=== PATIENT | female | born 1975 ===

== ENCOUNTER 2018-12-24 08:52 | Emergency (ER) | payer OTHER ==
[2018-12-24 08:55] VITALS: RESP 18; TEMP 97.7; O2SAT 100
--- NOTE | 2018-12-24 09:34 | ED PDOC ---
HPI: Abdomen Time Seen by Provider: 12/24/18 09:24 Chief Complaint (Nursing): Abdominal Pain Chief Complaint (Provider): Right lower abdominal pain History Per: Patient History/Exam Limitations: no limitations Onset/Duration Of Symptoms: Days Outside of [place] travel?: No Current Symptoms Are (Timing): Still Present Location Of Pain/Discomfort: RLQ, Epigastric Quality Of Discomfort: "Pain" Associated Symptoms: Nausea. denies: Fever, Chills, Vomiting, Diarrhea, Loss Of Appetite, Back Pain, Chest Pain, Constipation, Urinary Symptoms Additional History Per: Patient Additional Complaint(s): 43yo female, otherwise well, with history of appendectomy, kidney stones, comes to ER reporting right lower abdominal pain, and now with epigastric abdominal pain as well. She states the pain has been present since last night and is associated with nausea. Otherwise, no fever, chills, vomiting, back pain, hematuria, dysuria. She also denies any chest pain or shortness of breath. Patient did not take any medication for her symptoms. No additional complaints. PMD: None Abnormal Vaginal Bleeding: No Past Medical History Reviewed: Historical Data, Nursing Documentation, Vital Signs Vital Signs: Last Vital Signs Temp 97.7 F 12/24/18 08:55 Pulse 60 12/24/18 08:55 Resp 18 12/24/18 08:55 BP 118/66 12/24/18 08:55 Pulse Ox 100 12/24/18 08:55 - Medical History PMH: Kidney Stones - Surgical History Surgical History: Appendectomy Other surgeries: tummy tuck - Family History Family History: States: No Known Family Hx - Social History Current smoker - smoking cessation education provided: No Alcohol: None Drugs: Denies - Home Medications Home Medications: Ambulatory Orders Medication Instructions Recorded Oxycodone HCl/Acetaminophen 1 tab PO Q6 PRN #12 tab 07/25/15 [Percocet 325 mg-5 mg] Tamsulosin [Flomax] 0.4 mg PO DAILY #10 cap 07/25/15 Famotidine [Pepcid] 20 mg PO BID #28 tab 08/16/15 Naproxen 500 mg PO Q12 #20 tab 08/16/15 Ondansetron [Zofran] 4 mg PO Q8H #9 tab 08/16/15 Tamsulosin [Flomax] 0.4 mg PO DAILY #21 cap 08/16/15 Dicyclomine [Bentyl] 20 mg PO BID PRN #30 tab 09/21/16 Famotidine [Pepcid] 40 mg PO DAILY PRN #14 tab 09/21/16 Ondansetron [Zofran] 4 mg PO Q8H PRN #30 tab 09/21/16 Famotidine [Pepcid] 20 mg PO DAILY PRN #6 tab 12/24/18 Ibuprofen [Motrin] 600 mg PO TID 7 Days tab 12/24/18 - Allergies Allergies/Adverse Reactions: Allergies Allergy/AdvReac Type Severity Reaction Status Date / Time Penicillins Allergy swelling, Verified 12/24/18 09:13 shortness of breath Review of Systems ROS Statement: Except As Marked, All Systems Reviewed And Found Negative Constitutional: Negative for: Fever, Chills Cardiovascular: Negative for: Chest Pain, Light Headedness Respiratory: Negative for: Shortness of Breath Gastrointestinal: Positive for: Nausea, Abdominal Pain. Negative for: Vomiting, Diarrhea Genitourinary Female: Negative for: Dysuria, Frequency, Hematuria, Vaginal Discharge, Vaginal Bleeding Musculoskeletal: Negative for: Back Pain Neurological: Negative for: Headache, Dizziness Physical Exam - Reviewed Nursing Documentation Reviewed: Yes Vital Signs Reviewed: Yes - Physical Exam Appears: Positive for: Non-toxic, No Acute Distress Head Exam: Positive for: ATRAUMATIC, NORMAL INSPECTION, NORMOCEPHALIC Skin: Positive for: Normal Color Eye Exam: Positive for: Normal appearance, EOMI, PERRL ENT: Negative for: Pharyngeal Erythema Neck: Positive for: Normal, Supple Cardiovascular/Chest: Positive for: Regular Rate, Rhythm. Negative for: Murmur, Tachycardia Respiratory: Positive for: Normal Breath Sounds. Negative for: Rales, Rhonchi, Wheezing Gastrointestinal/Abdominal: Positive for: Soft, Tenderness (mild tenderness to righ lower abdomen/right pelvis; epigastric). Negative for: Mass, Guarding, Rebound Back: Positive for: Normal Inspection. Negative for: L CVA Tenderness, R CVA Tenderness Extremity: Positive for: Normal ROM. Negative for: Pedal Edema Neurologic/Psych: Positive for: Alert, Oriented. Negative for: Motor/Sensory Deficits - Laboratory Results Result Diagrams: 12/24/18 09:39 12/24/18 09:39 Lab Results: no acute - ECG O2 Sat by Pulse Oximetry: 100 (RA) Pulse Ox Interpretation: Normal - CT Scan/US us Other Rad Studies (CT/US): Read By Radiologist Other Rad Interpretation: ovarian cyst left - Progress ED Course And Treament: 1201: Stable. AAOx3. Pain free. Tolerated PO. Fu with pcp. Medical Decision Making Medical Decision Making: Impression: Right pelvic pain Plan: -- Labs -- UDip -- US Transvaginal -- IV fluids -- Toradol 15mg IV Scribe Attestation: Documented by Swati Vance acting as a scribe for Darell Weeks MD Provider Attestation: All medical record entries made by the Scribe were at my direction and personally dictated by me. I have reviewed the chart and agree that the record accurately reflects my personal performance of the history, physical exam, medical decision making, and the department course for this patient. I have also personally directed, reviewed, and agree with the discharge instructions and disposition. Disposition - Clinical Impression Clinical Impression: Pelvic cramping, Ovarian cyst - Patient ED Disposition Is Patient to be Admitted: No - Disposition [facility] - [facility] Disposition: Routine/Home Disposition Time: 12:02 Condition: STABLE Additional Instructions: Return if not better in 3 days. Prescriptions: Famotidine [Pepcid] 20 mg PO DAILY PRN #6 tab PRN Reason: Pain Ibuprofen [Motrin] 600 mg PO TID 7 Days tab Instructions: Ovarian Cysts, Acute Pelvic Pain (DC) Forms: [facility] ED School/Work Excuse
[2018-12-24] MEDS: Sodium Chloride 0.9% 1,000 ML IV STA (10:03)
[2018-12-24 10:19] LABS: BASO % 0.7 % (0.0-2.0); EOS # 0.1 K/uL (0.0-0.7); HEMOGLOBIN 10.5 g/dL (12.0-16.0); LYMPH # 1.4 K/uL (1.0-4.3); LYMPH % 41.3 % (20.0-40.0); MEAN CELL VOLUME 82.2 fl (81.0-99.0); MEAN CORPUSCULAR HEMOGLOBIN 26.7 pg (27.0-31.0); MEAN CORPUSCULAR HGB CONC 32.4 g/dL (33.0-37.0); MEAN PLATELET VOLUME 8.5 fl (7.2-11.7); MONO # 0.3 K/uL (0.0-0.8); MONO % 7.8 % (0.0-10.0); NEUT # 1.7 K/uL (1.8-7.0); NEUT % 48.2 % (50.0-75.0); NRBC % 0.2 % (0.0-0.0); RBC 3.93 Mil/uL (3.80-5.20); RED CELL DISTRIBUTION WIDTH 20.7 % (11.5-14.5); WHITE BLOOD COUNT 3.5 K/uL (4.8-10.8)
[2018-12-24 10:26] LABS: ALB/GLOB RATIO 1.2 (1.0-2.1); ALBUMIN 3.8 g/dL (3.5-5.0); ALT/SGPT 20 U/L (9-52); AST/SGOT 22 U/L (14-36); BLOOD UREA NITROGEN 19 mg/dl (7-17); CALCIUM 8.8 mg/dL (8.4-10.2); GFR NON-AFRICAN AMERICAN > 60
[2018-12-24 10:33] LABS: BARBITURATES, UR NEGATIVE (NEGATIVE); BENZODIAZEPINES, UR NEGATIVE (NEGATIVE); OPIATES, UR NEGATIVE (NEGATIVE); PHENCYCLIDINE, UR NEGATIVE (NEGATIVE)
--- NOTE | 2018-12-24 11:47 | US ---
Date of service: 12/24/2018 HISTORY: vaginal bleeding COMPARISON: None available. TECHNIQUE: Transvaginal pelvic ultrasound was performed. FINDINGS: UTERUS: Measures 10.0 x 7.0 x 5.3 cm. Retroverted and normal in size. No fibroid or other mass lesion seen. ENDOMETRIUM: Measures 21 mm in diameter. The central endometrial echo complex is thick and heterogeneous with central low-level echoes. CERVIX: There are multiple nabothian cysts in the cervix. RIGHT OVARY: Measures 3.1 x 2.3 x 2.3 cm. No solid mass. Normal flow. LEFT OVARY: Measures 4.0 x 2.9 x 2.0 cm. No solid mass. Normal flow. There are 2 complicated/hemorrhagic cysts measuring 1.7 x 1.7 x 1.6 cm and 1.5 x 2.1 x 1.3 cm. FREE FLUID: No significant free fluid noted. OTHER FINDINGS: None. IMPRESSION: 1. Thick heterogeneous central endometrial echo complex with fluid/hemorrhagic products in the endometrial cavity. Clinical follow-up is advised. 2. Two complicated/hemorrhagic cysts in the left ovary, the larger measures 1.5 x 2.1 x 1.3 cm.
[2018-12-24 14:45] VITALS: BP 120/73; PULSE 59
== END 2018-12-24 12:11 | disposition home or self-care (01) ==
LOC: H.ER 08:52
DX: N83.202 Unspecified ovarian cyst, left side (principal); N93.9 Abnormal uterine and vaginal bleeding, unspecified; Z88.0 Allergy status to penicillin
CPT/HCPCS: 76830; 80053; 80324; 80345; 80346; 80349; 80353; 80358; 80361; 81025; 83992; 85025; 96361; 96374; 96375; 99284; J1885; J7030

== ENCOUNTER 2019-03-18 10:42 | Emergency (ER) | payer OTHER ==
[2019-03-18 10:48] VITALS: RESP 18; O2SAT 100; BMI 24.7
--- NOTE | 2019-03-18 11:19 | ED PDOC ---
HPI: Skin/Bite Injury Time Seen by Provider: 03/18/19 11:02 Chief Complaint (Nursing): Abnormal Skin Integrity Chief Complaint (Provider): Breast mass History Per: Patient History/Exam Limitations: no limitations Onset/Duration Of Symptoms: Days Additional Complaint(s): 44 yo F with history of breast lumps presents today with a right painful breast lump. Pt reports she noticed it about 1.5 weeks ago and has gotten bigger and more painful. SHe reports pain when moving her arm and unable to sleep. SHe has been taking Aleve for pain, last dose early this morning, just one pill. Pt reports in the past when she has had these there is fluid in them and get drained, biopsies have been negative for cancer. SHe has family history of breast cancer. SHe made an appointment at the clinic but no until 04/08, and she reports pain and size are getting worse. She denies fevers, chills, nipple discharge, unintentional weight loss, night sweats, changes in skin color. LMP: 03/05 PMD: [facility] Past Medical History Reviewed: Historical Data, Nursing Documentation, Vital Signs Vital Signs: Last Vital Signs Temp 97.4 F L 03/18/19 10:47 Pulse 74 03/18/19 10:47 Resp 18 03/18/19 10:47 BP 128/79 03/18/19 10:47 Pulse Ox 100 03/18/19 10:47 Primary Care Provider: FAMILY PROVIDER,NO - Medical History PMH: Kidney Stones - Surgical History Surgical History: Appendectomy - Family History Family History: States: Unknown Family Hx - Home Medications Home Medications: Ambulatory Orders Medication Instructions Recorded Oxycodone HCl/Acetaminophen 1 tab PO Q6 PRN #12 tab 07/25/15 [Percocet 325 mg-5 mg] Tamsulosin [Flomax] 0.4 mg PO DAILY #10 cap 07/25/15 Famotidine [Pepcid] 20 mg PO BID #28 tab 08/16/15 Naproxen 500 mg PO Q12 #20 tab 08/16/15 Ondansetron [Zofran] 4 mg PO Q8H #9 tab 08/16/15 Tamsulosin [Flomax] 0.4 mg PO DAILY #21 cap 08/16/15 Dicyclomine [Bentyl] 20 mg PO BID PRN #30 tab 09/21/16 Famotidine [Pepcid] 40 mg PO DAILY PRN #14 tab 09/21/16 Ondansetron [Zofran] 4 mg PO Q8H PRN #30 tab 09/21/16 Famotidine [Pepcid] 20 mg PO DAILY PRN #6 tab 12/24/18 Ibuprofen [Motrin] 600 mg PO TID 7 Days tab 12/24/18 Naproxen 500 mg PO BID PRN #20 tab 03/18/19 - Allergies Allergies/Adverse Reactions: Allergies Allergy/AdvReac Type Severity Reaction Status Date / Time Penicillins Allergy swelling, Verified 12/24/18 09:13 shortness of breath Review of Systems Constitutional: Negative for: Fever, Chills, Sweats Cardiovascular: Negative for: Chest Pain Gastrointestinal: Positive for: Nausea. Negative for: Vomiting, Abdominal Pain Genitourinary Female: Negative for: Dysuria, Frequency, Pelvic Pain Skin: Positive for: Other (breast pain and lump) Physical Exam - Reviewed Nursing Documentation Reviewed: Yes Vital Signs Reviewed: Yes - Physical Exam Comments: GENERAL APPEARANCE: Patient is awake, alert, oriented x 3, in mild painful distress. Skin: warm and dry BREAST: (+) 2x2cm palpable tender mass of right breast, 9 o'clock position, mobile (-)erythema (-) drainage (-) fluctuance (-) rashes, (-) skin changes, (-) nipple discharge or retractions (-) no lymphadenopathy. Pulmonary: lungs clear, no rhonchi, no wheezing. Cardiac: regular rate and rhythm, no murmur, no gallop. Abdomen: soft, nontender. Extremities: no deformity, full range of motion, no tenderness. - ECG O2 Sat by Pulse Oximetry: 100 Medical Decision Making Medical Decision Makin:02 initial eval - breast mass -- US breast to rule out abscess/cyst -- Toradol IM for pain -- u preg -- re eval 13:00 Date of service: 03/18/2019 PROCEDURE: Diagnostic right breast ultrasound examination HISTORY: right mass 9 oclock position, r/o abscess/cyst COMPARISON: Not available TECHNIQUE: Targeted ultrasound examination of right breast in area of palpable abnormality. Right axillary ultrasound. FINDINGS: Targeted ultrasound examination of the right breast demonstrates a lobulated cyst in the 9 o'clock axis, 4 cm from the nipple, measuring 2.3 x 2.7 x 3.5 cm. There are no internal echoes or septations identified. There is no solid component appreciated. There is mild peripheral vascularity. There is no significant hypervascularity about this cyst. No other solid or cystic mass is appreciated in the targeted region of the right breast. No morphologically significant right axillary lymph nodes are identified. IMPRESSION: Lobulated cyst without solid component or internal echoes, 3.5 cm greatest dimension. This is not suspicious for malignancy. Please note that the patient has no record of bilateral mammography since 06/05/2016 and therefore bilateral mammography is advised on a non urgent basis. BIRADS 0 Incomplete - Need additional imaging evaluation and/or prior mammograms for comparison Recommendation: Recall for additional imaging and/or comparison with prior examination, as described above. Patient will be contacted. 13:04 on re eval pt reports feeling better, pain improved with Toradol IM pt with cyst, no suspicion for malignancy, nothing emergent to be done at this time - pt has an appointment coming up, informed pt of need for mammogram Discussed results, diagnosis, treatment, return precautions and f/u with pt who is understanding, in agreement and stable for dc Disposition - Clinical Impression Clinical Impression: Cyst of breast - Patient ED Disposition Is Patient to be Admitted: No Counseled Patient/Family Regarding: Studies Performed, Diagnosis, Need For Followup, Rx Given - Disposition Referrals: [facility] [Outside] Disposition: Routine/Home Disposition Time: 13:06 Condition: IMPROVED Additional Instructions: The emergency medical care you received today was directed at your acute symptoms. If you were prescribed any medication, please fill it and take as directed. It may take several days for your symptoms to resolve. Return to the Emergency Department if your symptoms worsen, do not improve, or if you have any other problems. Please contact your doctor in 2 days for re-evaluation and follow up / or call one of the physicians/clinics you have been referred to that are listed on the Patient Visit Information form that is included in your discharge packet. Bring any paperwork you were given at discharge with you along with any medications you are taking to your follow up visit. Our treatment cannot replace ongoing medical care by a primary care provider (PCP) outside of the emergency depar tment Prescriptions: Naproxen 500 mg PO BID PRN #20 tab PRN Reason: Pain, Moderate (4-7) Instructions: Common Breast Problems, Fibrocystic Breast Changes (DC), Lowering Your Risk of Breast Cancer Forms: [facility] (Maltese) Print Language: SAMI - POA Present On Arrival: None
--- NOTE | 2019-03-18 13:00 | US ---
Date of service: 03/18/2019 PROCEDURE: Diagnostic right breast ultrasound examination HISTORY: right mass 9 oclock position, r/o abscess/cyst COMPARISON: Not available TECHNIQUE: Targeted ultrasound examination of right breast in area of palpable abnormality. Right axillary ultrasound. FINDINGS: Targeted ultrasound examination of the right breast demonstrates a lobulated cyst in the 9 o'clock axis, 4 cm from the nipple, measuring 2.3 x 2.7 x 3.5 cm. There are no internal echoes or septations identified. There is no solid component appreciated. There is mild peripheral vascularity. There is no significant hypervascularity about this cyst. No other solid or cystic mass is appreciated in the targeted region of the right breast. No morphologically significant right axillary lymph nodes are identified. IMPRESSION: Lobulated cyst without solid component or internal echoes, 3.5 cm greatest dimension. This is not suspicious for malignancy. Please note that the patient has no record of bilateral mammography since 06/05/2016 and therefore bilateral mammography is advised on a non urgent basis. BIRADS 0 Incomplete - Need additional imaging evaluation and/or prior mammograms for comparison Recommendation: Recall for additional imaging and/or comparison with prior examination, as described above. Patient will be contacted.
[2019-03-18 13:46] VITALS: BP 111/67; PULSE 56; TEMP 97.9
== END 2019-03-18 13:55 | disposition home or self-care (01) ==
LOC: H.ER 10:42
DX: N60.01 Solitary cyst of right breast (principal); N64.4 Mastodynia; Z80.3 Family history of malignant neoplasm of breast; Z87.442 Personal history of urinary calculi; Z88.0 Allergy status to penicillin
CPT/HCPCS: 76641; 81025; 96372; 99283; J1885